=== PATIENT | male | born 1995 ===

== ENCOUNTER 2024-10-23 12:14 | Emergency (ER) | payer SELFPAY ==
[~2024-10-23] VITALS: Ht 175.3 cm; Wt 100.0 kg
[2024-10-23 12:46] VITALS: TEMP 98.2
[2024-10-23] MEDS: IBUPROFEN 400 MG TABLET PO ONE (13:14)
[2024-10-23] MEDS: ACETAMINOPHEN 500 MG TABLET PO ONE (13:14)
[2024-10-23] MEDS: OxyCODONE HCL 5 MG IR TABLET PO ONE (15:19)
[2024-10-23] MEDS ORDERED: HYDR-4072 PO (15:34)
[2024-10-23 15:59] VITALS: BP 113/82; PULSE 82; RESP 16; O2SAT 99
== END 2024-10-23 16:01 | disposition home or self-care (01) ==
LOC: EMS 12:14
DX: S40.011A Contusion of right shoulder, initial encounter (principal); M54.50 Low back pain, unspecified; W01.0XXA Fall on same level from slipping, tripping and stumbling without subsequent striking against object, initial encounter; Y93.01 Activity, walking, marching and hiking; Y92.89 Other specified places as the place of occurrence of the external cause; Y99.0 Civilian activity done for income or pay
CPT/HCPCS: 71045; 72170; 99284